=== PATIENT | female | born 1985 | race Two or more races ===

== ENCOUNTER 2017-12-13 23:48 | Emergency (ER) | payer OTHER ==
[~2017-12-13] VITALS: Ht 149.9 cm; Wt 84.4 kg
[2017-12-14 00:19] VITALS: BP 117/73
== END 2017-12-14 05:20 | disposition left against medical advice (07) ==
LOC: ER 23:51
DX: M54.9 Dorsalgia, unspecified (principal); Z53.21 Procedure and treatment not carried out due to patient leaving prior to being seen by health care provider